=== PATIENT | male | born 1990 | race Caucasian/White ===

== ENCOUNTER 2017-12-20 18:22 | Emergency (ER) | payer BC, OTHER ==
[~2017-12-20] VITALS: Ht 180.3 cm; Wt 83.9 kg
--- NOTE | 2017-12-20 19:26 | ED Abdominal Pain ---
General Chief Complaint: Abdominal/GI Problems Stated Complaint: ABD PAIN Source of Information: Patient Exam Limitations: No Limitations History of Present Illness Date Seen by Provider: Dec 20, 2017 Time Seen by Provider: 19:24 Initial Comments To ER per private vehicle with reports of worsening right lower quadrant abdominal pain since yesterday morning. He's had associated nausea but no vomiting. No fevers chills. His last vomiting was yesterday morning and was normal. No diarrhea no constipation. No history of this. He was seen by primary care [facility] today and referred here due to concerns for appendicitis. 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 Last meal was at 1530 today and was chicken and macaroni and gravy without any vomiting or change in pain. Timing/Duration: 1-2 Days Severity/Quality: Moderate Location: RLQ Radiation: No Radiation Activities at Onset: None Associated Symptoms: No Fever/Chills; Nausea/Vomiting Allergies and Home Medications Allergies Coded Allergies: No Known Drug Allergies (Unverified , 12/20/17) Patient Home Medication List Home Medication List Reviewed: Yes Review of Systems Review of Systems Constitutional: see HPI; No chills EENTM: No Symptoms Reported Respiratory: No Symptoms Reported Cardiovascular: See HPI Gastrointestinal: See HPI, Abdominal Pain; Denies Constipated, Denies Diarrhea ; Nausea; Denies Vomiting Genitourinary: No Symptoms Reported Musculoskeletal: no symptoms reported Skin: no symptoms reported Psychiatric/Neurological: No Symptoms Reported Endocrine: No Symptoms Reported Hematologic/Lymphatic: No Symptoms Reported Past Wkakjbs-Vnavqw-Xoernq Hx Patient Social History Recent Foreign Travel: No Contact w/Someone Who Travel: No Physical Exam Vital Signs Vital Signs - First Documented 12/20/17 19:23 Temp 97.5 Pulse 87 Resp 18 B/P (MAP) 139/88 (105) Pulse Ox 99 Capillary Refill : Height/Weight/BMI Height: '" Weight: lbs. oz. kg; BMI Method: General Appearance: WD/WN, no apparent distress HEENT: PERRL/EOMI, normal ENT inspection Neck: non-tender, full range of motion Respiratory: no respiratory distress, no accessory muscle use Cardiovascular: regular rate, rhythm, no murmur Gastrointestinal: normal bowel sounds, soft; No distended, No guarding; rebound , tenderness Extremities: normal range of motion, non-tender Neurologic/Psychiatric: alert, normal mood/affect, oriented x 3 Skin: normal color, warm/dry Progress/Results/Core Measures Results/Orders Lab Results Laboratory Tests Test 12/20/17 19:18 12/20/17 19:19 Range/Units White Blood Count 7.9 4.3-11.0 10^3/uL Red Blood Count 4.23 L 4.35-5.85 10^6/uL Hemoglobin 13.2 L 13.3-17.7 G/DL Hematocrit 37 L 40-54 % Mean Corpuscular Volume 88 80-99 FL Mean Corpuscular Hemoglobin 31 25-34 PG Mean Corpuscular Hemoglobin Concent 35 32-36 G/DL Red Cell Distribution Width 13.3 10.0-14.5 % Platelet Count 269 130-400 10^3/uL Mean Platelet Volume 9.6 7.4-10.4 FL Neutrophils (%) (Auto) 63 42-75 % Lymphocytes (%) (Auto) 27 12-44 % Monocytes (%) (Auto) 9 0-12 % Eosinophils (%) (Auto) 2 0-10 % Basophils (%) (Auto) 0 0-10 % Neutrophils # (Auto) 5.0 1.8-7.8 X 10^3 Lymphocytes # (Auto) 2.1 1.0-4.0 X 10^3 Monocytes # (Auto) 0.7 0.0-1.0 X 10^3 Eosinophils # (Auto) 0.1 0.0-0.3 10^3/uL Basophils # (Auto) 0.0 0.0-0.1 10^3/uL Sodium Level 141 135-145 MMOL/L Potassium Level 3.8 3.6-5.0 MMOL/L Chloride Level 107 98-107 MMOL/L Carbon Dioxide Level 25 21-32 MMOL/L Anion Gap 9 5-14 MMOL/L Blood Urea Nitrogen 15 7-18 MG/DL Creatinine 1.00 0.60-1.30 MG/DL Estimat Glomerular Filtration Rate > 60 BUN/Creatinine Ratio 15 Glucose Level 98 70-105 MG/DL Calcium Level 9.5 8.5-10.1 MG/DL Corrected Calcium 9.1 8.5-10.1 MG/DL Total Bilirubin 0.3 0.1-1.0 MG/DL Aspartate Amino Transf (AST/SGOT) 19 5-34 U/L Alanine Aminotransferase (ALT/SGPT) 21 0-55 U/L Alkaline Phosphatase 60 40-136 U/L Total Protein 7.5 6.4-8.2 GM/DL Albumin 4.5 3.2-4.5 GM/DL Urine Color YELLOW Urine Clarity CLEAR Urine pH 6.5 5-9 Urine Specific [place] 1.020 1.016-1.022 Urine Protein NEGATIVE NEGATIVE Urine Glucose (UA) NEGATIVE NEGATIVE Urine Ketones NEGATIVE NEGATIVE Urine Nitrite NEGATIVE NEGATIVE Urine Bilirubin NEGATIVE NEGATIVE Urine Urobilinogen 1 NORMAL MG/DL Urine Leukocyte Esterase NEGATIVE NEGATIVE Urine RBC (Auto) NEGATIVE NEGATIVE Urine RBC NONE /HPF Urine WBC 2-5 /HPF Urine Squamous Epithelial Cells RARE /HPF Urine Renal Epithelial Cells NONE /HPF Urine Crystals NONE /LPF Urine Bacteria TRACE /HPF Urine Casts NONE /LPF Urine Mucus LARGE H /LPF Urine Culture Indicated NO My Orders Orders - LISETH CANELA [employer] Ct Abd/Pelv W (Appendicitis) (12/20/17 19:20) Cbc With Automated Diff (12/20/17 19:20) Comprehensive Metabolic Panel (12/20/17 19:20) Ua Culture If Indicated (12/20/17 19:20) Iv Heplock-Insert (Order) (12/20/17 19:20) Iohexol Injection (Omnipaque 350 Mg/Ml 1 (12/20/17 19:30) Ns (Ivpb) (Sodium Chloride 0.9%) (12/20/17 19:30) Medications Given in ED Current Medications Medications Dose Ordered Sig/Ronn Route Start Time Stop Time Status Last Admin Dose Admin Iohexol 100 ml ONCE ONCE IV 12/20/17 19:30 12/20/17 19:31 UNV 12/20/17 19:33 100 ML Sodium Chloride 250 ml ONCE ONCE IV 12/20/17 19:30 12/20/17 19:31 UNV 12/20/17 19:33 80 ML Vital Signs/I&O 12/20/17 19:23 Temp 97.5 Pulse 87 Resp 18 B/P (MAP) 139/88 (105) Pulse Ox 99 Diagnostic Imaging Diagonstic Imaging: CT Comments NAME: REKHA SAVAGE MED REC#: [id number] PT STATUS: REG ER : 1990 PHYSICIAN: LISETH CANELA APRN ADMIT DATE: 12/20/17/ER Draft Date of Exam:12/20/17 CT ABD/PELV W (APPENDICITIS) PROCEDURE: CT abdomen and pelvis with contrast, rule out appendicitis. TECHNIQUE: Multiple contiguous axial images were obtained through the abdomen and pelvis after the administration of intravenous contrast. INDICATION: Right lower quadrant pain and nausea for 2 days. No prior studies are available for comparison. The lung bases are clear. The patient does have a pectus excavatum deformity. The liver and gallbladder are unremarkable. The pancreas and spleen are unremarkable. No adrenal mass is identified. Kidneys are unremarkable. Aorta is non-aneurysmal. Small and large bowel loops are normal caliber. The appendix is visualized and unremarkable. No definite findings to suggest acute appendicitis are seen. There is no free fluid in the abdomen or pelvis. Bladder is diffusely thickwalled. No other significant abnormality is seen. IMPRESSION: 1. No evidence of acute appendicitis. 2. Diffuse bladder wall thickening. Cystitis cannot be entirely excluded. No other significant abnormality is seen. Dictated on workstation # [id number] Dict: 12/20/171944 Trans: 12/20/17 [facility] [id number] Interpreted by: MARIYA JAMES MD Electronically signed by: Departure Impression Primary Impression: RLQ abdominal pain Additional Impression: Constipation Disposition: 01 HOME, SELF-CARE Condition: Stable Departure-Patient Inst. Decision time for Depature: 19:54 Patient Instructions: Acute Abdomen (Belly Pain), Adult (DC), Constipation, Adult (DC) Add. Discharge Instructions: 1. Return to ER for any concerns 2. Use 4 capFull's of MiraLAX and a bottle of Gatorade and drank this over about 2 hours. Follow-up with your doctor next week.your appendix appears normal. LISETH CANELA APRN Dec 20, 2017 19:26
[2017-12-20 19:28] LABS: BASOPHILS % (AUTO) 0 % (0-10); EOSINOPHILS # (AUTO) 0.1 10^3/uL (0.0-0.3); EOSINOPHILS % (AUTO) 2 % (0-10); HEMATOCRIT 37 % (40-54); HEMOGLOBIN 13.2 G/DL (13.3-17.7); LYMPHOCYTES # (AUTO) 2.1 X 10^3 (1.0-4.0); LYMPHOCYTES % (AUTO) 27 % (12-44); MEAN CORPUSCULAR HEMOGLOBIN 31 PG (25-34); MEAN CORPUSCULAR HGB CONC 35 G/DL (32-36); MEAN CORPUSCULAR VOLUME 88 FL (80-99); MEAN PLATELET VOLUME 9.6 FL (7.4-10.4); MONOCYTES # (AUTO) 0.7 X 10^3 (0.0-1.0); MONOCYTES % (AUTO) 9 % (0-12); NEUTROPHILS % (AUTO) 63 % (42-75); PLATELET COUNT 269 10^3/uL (130-400); RED BLOOD COUNT 4.23 10^6/uL (4.35-5.85); RED CELL DISTRIBUTION WIDTH 13.3 % (10.0-14.5); WHITE BLOOD COUNT 7.9 10^3/uL (4.3-11.0)
[2017-12-20 19:29] LABS: BILIRUBIN,URINE NEGATIVE (NEGATIVE); CLARITY,URINE CLEAR; COLOR,URINE YELLOW; GLUCOSE, URINE (UA) NEGATIVE (NEGATIVE); KETONES,URINE NEGATIVE (NEGATIVE); LEUKOCYTE ESTERASE ,URINE NEGATIVE (NEGATIVE); NITRITE,URINE NEGATIVE (NEGATIVE); PH,URINE 6.5 (5-9); PROTEIN,URINE NEGATIVE (NEGATIVE); UROBILINOGEN,URINE 1 MG/DL (NORMAL)
[2017-12-20] MEDS ORDERED: NS 250 ML (IVPB) BAG IV ONE (19:30)
[2017-12-20] MEDS ORDERED: IOHEXOL 350 MG/ML 100 ML (OMNIPAQUE 350) VIAL IV ONE (19:30)
[2017-12-20 19:39] LABS: BACTERIA,URINE TRACE /HPF; SQUAMOUS EPITHELIAL CELL,UR RARE /HPF
[2017-12-20 19:48] LABS: ALANINE AMINOTRANSFERASE 21 U/L (0-55); ALBUMIN 4.5 GM/DL (3.2-4.5); ALKALINE PHOSPHATASE 60 U/L (40-136); BILIRUBIN,TOTAL 0.3 MG/DL (0.1-1.0); BUN/CREATININE RATIO 15; CALCIUM 9.5 MG/DL (8.5-10.1); CARBON DIOXIDE 25 MMOL/L (21-32); CHLORIDE 107 MMOL/L (98-107); GFR ESTIMATED > 60; GLUCOSE 98 MG/DL (70-105); POTASSIUM 3.8 MMOL/L (3.6-5.0); SODIUM 141 MMOL/L (135-145); TOTAL PROTEIN 7.5 GM/DL (6.4-8.2)
--- NOTE | 2017-12-20 19:51 | Diagnostic Imaging Report ---
PROCEDURE: CT abdomen and pelvis with contrast, rule out appendicitis. TECHNIQUE: Multiple contiguous axial images were obtained through the abdomen and pelvis after the administration of intravenous contrast. INDICATION: Right lower quadrant pain and nausea for 2 days. No prior studies are available for comparison. The lung bases are clear. The patient does have a pectus excavatum deformity. The liver and gallbladder are unremarkable. The pancreas and spleen are unremarkable. No adrenal mass is identified. Kidneys are unremarkable. Aorta is non-aneurysmal. Small and large bowel loops are normal caliber. The appendix is visualized and unremarkable. No definite findings to suggest acute appendicitis are seen. There is no free fluid in the abdomen or pelvis. Bladder is diffusely thickwalled. No other significant abnormality is seen. IMPRESSION: 1. No evidence of acute appendicitis. 2. Diffuse bladder wall thickening. Cystitis cannot be entirely excluded. No other significant abnormality is seen. Dictated by: Dictated on workstation # [id number]
[2017-12-20 20:07] VITALS: BP 139/88
== END 2017-12-20 20:07 | disposition home or self-care (01) ==
LOC: EDUNIT# 18:22 → ER 18:23
DX: K59.00 Constipation, unspecified (principal)
CPT/HCPCS: 36415; 74177; 80053; 81000; 85025

== ENCOUNTER → 2020-07-04 | Outpatient (CLI) | payer BC, OTHER ==
--- NOTE | 2020-07-04 13:22 | Diagnostic Imaging Report ---
PROCEDURE: MRI right joint upper extremity without contrast. TECHNIQUE: Multiplanar, multisequence non contrast-enhanced MRI of the right upper extremity was accomplished. INDICATION: Right shoulder pain with no known injury. COMPARISON: None. FINDINGS: No acute fracture is seen in the right shoulder. The alignment appears normal. There is no joint effusion. The supraspinatus tendon, infraspinatus tendon, subscapularis tendon, and teres minor tendon demonstrate no high-grade partial-thickness or full-thickness tears. No muscular edema or atrophy is seen. The long head of the biceps tendon is normal in course and signal. The glenoid labrum is suboptimally evaluated in the absence of intra-articular contrast. There is T2 bright signal underlying the labrum at the anterior superior aspect. This can be seen with normal variant; however, the edges of the labral substance appear somewhat irregular and this is concerning for a tear. The acromion has a curved undersurface without hooking. The coracoclavicular and coracoacromial ligaments are intact. The subcoracoid fat is preserved. Soft tissues about the right shoulder are otherwise unremarkable. IMPRESSION: 1. No high-grade partial-thickness or full-thickness rotator cuff tear in the right shoulder. 2. Suspected tear at the anterior superior right glenoid labrum. Dictated by: Dictated on workstation # [id number]
== END ==
LOC: RAD 09:57
PROVIDERS: ATTEND Nurse Practitioner Family
DX: M25.511 Pain in right shoulder (principal)
CPT/HCPCS: 73221

== ENCOUNTER → 2020-07-20 | Outpatient (CLI) | payer OTHER ==
--- NOTE | 2020-07-20 16:16 | Diagnostic Imaging Report ---
INDICATION: Right shoulder pain. COMPARISON: None. FINDINGS: Three views of the right shoulder were obtained. There is no fracture, dislocation, or other acute bony abnormality identified. The soft tissues appear unremarkable. No radiopaque foreign bodies identified. The visualized portions of the right lung are clear. IMPRESSION: No acute fractures or dislocations of the right shoulder. Dictated by: Dictated on workstation # [id number]
== END ==
LOC: RAD FS 15:29
PROVIDERS: ATTEND Nurse Practitioner
DX: M25.511 Pain in right shoulder (principal)
CPT/HCPCS: 73030

== ENCOUNTER 2021-10-17 00:15 | Emergency (ER) | payer OTHER ==
[2021-10-17 00:34] VITALS: BP 118/84
[2021-10-17] MEDS ORDERED: TETRACAINE 0.5% OPHTH SOLN 4 ML BTL (SINGLE DOSE ONLY) OU ONE (00:45)
[2021-10-17] MEDS ORDERED: FLUORESCEIN (FLUOR-I-STRIPS) 1 MG STRP OU ONE (00:45)
[2021-10-17] MEDS ORDERED: BSS 15 ML IR ONE (00:45)
[2021-10-17] MEDS ORDERED: diphenhydrAMINE 50 MG/ML INJ (BENADRYL) IM ONE (00:45)
--- NOTE | 2021-10-17 02:37 | ED EENT ---
History of Present Illness General Chief Complaint: Eye Problems Stated Complaint: RT EYE PAIN Nursing Triage Note: pt presents with complaint of right eye pain. reports all day he felt like he had something in his eye. around 30mins ago pt used visean eye drops in the right eye and had immediate blistering on his eye with pain Source: patient, family Exam Limitations: no limitations History of Present Illness Date Seen by Provider: Oct 17, 2021 Time Seen by Provider: 00:26 Initial Comments This 34-year-old gentleman presents to the emergency room with significant conjunctivitis and edema of the conjunctiva and sclera of the right eye. He had a foreign body sensation that was mildly irritating throughout the day. He used some tetrahydrozoline drops and had immediate worsening of the irritation and immediate severe swelling of the conjunctiva and sclera. He has never had this reaction before when using these drops. He denies any pain over the cornea. Allergies and Home Medications Allergies Coded Allergies: tetrahydrozoline (Verified Allergy, Intermediate, Itching, 10/17/21) Eye swelling, conjunctivitis Patient Home Medication List Home Medication List Reviewed: Yes Review of Systems Review of Systems Constitutional: no symptoms reported Eyes: See HPI Ears: No Symptoms Reported Nose: no symptoms reported Mouth: no symptoms reported Throat: no symptoms reported Respiratory: no symptoms reported Cardiovascular: no symptoms reported Gastrointestinal: no symptoms reported Musculoskeletal: no symptoms reported Skin: no symptoms reported Neurological: No Symptoms Reported Hematologic/Lymphatic: No Symptoms Reported Immunological/Allergic: see HPI Past Yirowwy-Cwgonq-Wjlngs Hx Patient Social History Tobacco Use?: No Substance use?: No Alcohol Use?: No Immunizations Up To Date Influenza Vaccine Up-to-Date: Yes; Up-to-Date Seasonal Allergies Seasonal Allergies: Yes Past Medical History Surgeries: No Respiratory: No Cardiac: No Neurological: No Genitourinary: No Gastrointestinal: No Musculoskeletal: No Endocrine: No HEENT: No Cancer: No Psychosocial: No Integumentary: No Blood Disorders: No Physical Exam Vital Signs Vital Signs - First Documented 10/17/21 10/17/21 00:34 01:47 Pulse 79 Resp 18 B/P (MAP) 118/84 (95) Pulse Ox 97 O2 Delivery Room Air Height, Weight, BMI Height: 5'11.00" Weight: 185lbs. oz. 83.525014ux; BMI Method:Stated General Appearance: WD/WN, no apparent distress Eyes: right eye PERRL, right eye EOMI, right eye other (Marked edema of the conjunctiva and sclera such that it bulges over the rim of the cornea); left eye normal inspection Ears: bilateral ear auricle normal Nose: normal inspection Mouth/Throat: normal mouth inspection Neck: normal inspection Cardiovascular: regular rate, rhythm, no edema Respiratory: lungs clear, normal breath sounds, no respiratory distress Neurologic/Psychiatric: systems lead II-XII nml as tested, alert, normal mood/affect, oriented x 3 Skin: normal color, warm/dry Progress/Results/Core Measures Results/Orders My Orders Orders - REKHA PETIT MD Diphenhydramine Injection (Benadryl Inje (10/17/21 00:45) Tetracaine 0.5% Ophth Kirstin Sdv (Tetracai (10/17/21 00:45) Fluorescein Strips ([id number]-[id number]-Mjhffi) (10/17/21 00:45) Balanced Salt Irrigation Soln (Bss Irrig (10/17/21 00:45) Medications Given in ED Current Medications Medications Dose Ordered Sig/Ronn Route Start Time Stop Time Status Last Admin Dose Admin Diphenhydramine HCl 25 mg ONCE ONCE IM 10/17/21 00:45 10/17/21 00:47 DC 10/17/21 00:41 25 MG Vital Signs/I&O 10/17/21 10/17/21 00:34 01:47 Pulse 79 66 Resp 18 18 B/P (MAP) 118/84 (95) 98/57 Pulse Ox 97 95 O2 Delivery Room Air Blood Pressure Mean: 71 Progress Progress Note : Progress Note Patient received Benadryl 25 mg IM with marked improvement in the edema. Fluorescein exam was performed and no injury was noted to the cornea. See discharge instructions for further discussion. Departure Impression Primary Impression: Allergic conjunctivitis Qualified Codes: H10.11 - Acute atopic conjunctivitis, right eye Disposition: HOME, SELF-CARE Condition: Improved Departure-Patient Inst. Decision time for Depature: 02:35 Referrals: [facility] (PCP/Family) Primary Care Physician Patient Instructions: Conjunctivitis (Noninfectious [place]) Add. Discharge Instructions: Your symptoms are likely due to allergic conjunctivitis. Please list tetrahydrozoline as an allergy at future healthcare encounters. When you return home, take Lia and continue to take Lia daily until symptoms have completely resolved. For breakthrough symptoms you may additionally take Benadryl (diphenhydramine) up to 50 mg every 4 hours as needed. If your symptoms are not completely resolved by the time you get up in the morning, please call Dr. Ward's clinic to schedule a follow-up. You may use the balance saline dispensed from the ER to moisten your eye as needed. Return to the ER if you have worsening symptoms despite following these instructions. All discharge instructions reviewed with patient and/or family. Voiced understanding. Copy Copies To 1: ANNAMARIA WARD OD, JOSHUA T MD Oct 17, 2021 02:37
== END 2021-10-17 02:43 | disposition home or self-care (01) ==
LOC: EDUNIT# 00:15 → ER 00:21
DX: H10.11 Acute atopic conjunctivitis, right eye (principal)
CPT/HCPCS: 99284